=== PATIENT | female | born 1970 | race African-American/Black ===

== ENCOUNTER 2018-10-26 16:08 | Emergency (ER) | payer MEDICARE, MEDICAID ==
[~2018-10-26] VITALS: Ht 157.5 cm; Wt 65.9 kg
[2018-10-26] MEDS ORDERED: NORVASC5 M1 PO (16:33)
[2018-10-26] MEDS ORDERED: MORPHINE SUL15 MG PO (16:34)
[2018-10-26] MEDS ORDERED: TYLENOL PM PO (16:35)
[2018-10-26] MEDS ORDERED: PERCOCET 10/31 COMBO PO (16:35)
[2018-10-26] MEDS ORDERED: SINGULAIR10 MG PO (16:36)
[2018-10-26] MEDS ORDERED: KEFLEX500 MG PO (17:28)
[2018-10-26 17:43] VITALS: BP 141/86
== END 2018-10-26 17:43 | disposition home or self-care (01) ==
LOC: ED 16:08
DX: T81.41XA Infection following a procedure, superficial incisional surgical site, initial encounter (principal); L03.116 Cellulitis of left lower limb; L03.115 Cellulitis of right lower limb; I10 Essential (primary) hypertension; F17.210 Nicotine dependence, cigarettes, uncomplicated; Y83.8 Other surgical procedures as the cause of abnormal reaction of the patient, or of later complication, without mention of misadventure at the time of the procedure

== ENCOUNTER 2018-11-06 11:38 | Emergency (ER) | payer MEDICARE, MEDICAID ==
[~2018-11-06] VITALS: Ht 157.5 cm; Wt 62.0 kg
[~2018-11-06 11:38] MED LIST: KEFLEX500 MG PO; MORPHINE SUL15 MG PO; NORVASC5 M1 PO; PERCOCET 10/31 COMBO PO; SINGULAIR10 MG PO; TYLENOL PM PO
[2018-11-06 12:02] LABS: IMMATURE GRANULOCYTES 0.3 % (0.0-5.0); MEAN CELL VOLUME 91.4 fL CALC (80.0-100.0); MEAN CORPUSCULAR HGB 29.8 pG CALC (26.0-32.0); MEAN CORPUSCULAR HGB CONC 32.6 g/L CALC (32.0-36.0); NEUT# 4.19 thou/uL (2.00-7.15); RED BLOOD COUNT 3.59 mill/uL (4.20-5.60); RED CELL DISTRI WIDTH 13.2 % (11.5-15.5)
[2018-11-06 12:04] LABS: HEMATOCRIT 32.8 % (37.0-47.0); HEMOGLOBIN 10.7 g/dl (12.0-16.0)
[2018-11-06] MEDS ORDERED: VALIUM5 MG PO (12:04)
[2018-11-06 12:16] LABS: ALBUMIN 4.5 g/dL (3.2-5.0); ALKALINE PHOSPHATASE 131 u/l (38-126); AMYLASE 68 u/l (30-110); BILIRUBIN, TOTAL 0.3 mg/dL (0.0-1.4); BUN 11 mg/dL (7-17); BUN/CREATININE RATIO 16 (12-20 (CALC)); CHLORIDE 111 mmol/l (95-108); CREATININE 0.7 mg/dL (0.5-1.0); GFR > 60 ML/MIN (>=60 (CALC)); GFR FOR AFR.AMER. > 60 ML/MIN (>=60 (CALC)); LIPASE 199 u/l (23-300); SGOT/AST 19 u/l (14-36); SODIUM 143 mmol/l (137-146); TOTAL PROTEIN 7.6 g/dL (6.3-8.2)
[2018-11-06 12:18] LABS: ANION GAP 14 (6-22 (CALC)); CARBON DIOXIDE 22 mmol/l (22-30); POTASSIUM 3.8 mmol/l (3.5-5.1)
[2018-11-06] MEDS ORDERED: ONDANSETRON4 MG PO (13:06)
[2018-11-06 13:20] VITALS: BP 155/88
== END 2018-11-06 13:25 | disposition home or self-care (01) ==
LOC: ED 11:38
PROVIDERS: Emergency Medicine
DX: R10.30 Lower abdominal pain, unspecified (principal); R11.2 Nausea with vomiting, unspecified; I10 Essential (primary) hypertension; F17.210 Nicotine dependence, cigarettes, uncomplicated
CPT/HCPCS: Q9967

== ENCOUNTER 2021-01-06 18:06 | Emergency (ER) | payer MEDICARE, MEDICAID ==
[~2021-01-06] VITALS: Ht 157.5 cm; Wt 146.8 kg
[~2021-01-06 18:06] MED LIST changes: +ONDANSETRON4 MG PO; +VALIUM5 MG PO
[2021-01-06 19:44] LABS: HEMATOCRIT 37.7 % (37.0-47.0); HEMOGLOBIN 11.9 g/dl (12.0-16.0); IMMATURE GRANULOCYTES 0.2 % (0.0-5.0); MEAN CORPUSCULAR HGB CONC 31.6 g/dL CAL (32.0-36.0); NEUT# 3.3 thou/uL (2.00-7.15); RED BLOOD COUNT 3.97 mill/uL (4.20-5.60); RED CELL DISTRI WIDTH 12.8 % (11.5-15.5)
[2021-01-06 19:55] LABS: ALBUMIN 4.9 g/dL (3.2-5.0); ALKALINE PHOSPHATASE 108 u/l (38-126); AMYLASE 82 u/l (30-110); BUN 14 mg/dL (7-17); BUN/CREATININE RATIO 15 (12-20 (CALC)); CHLORIDE 104 mmol/l (95-108); CREATININE 0.9 mg/dL (0.5-1.0); GFR > 60 ML/MIN (>=60 (CALC)); GFR FOR AFR.AMER. > 60 ML/MIN (>=60 (CALC)); LIPASE 119 u/l (23-300); SGOT/AST 25 u/l (14-36); SODIUM 141 mmol/l (137-146); TOTAL PROTEIN 8.4 g/dL (6.3-8.2)
[2021-01-06 19:56] LABS: ANION GAP 14 (6-22 (CALC)); BILIRUBIN, TOTAL 0.5 mg/dL (0.0-1.4); CARBON DIOXIDE 28 mmol/l (22-30); POTASSIUM 4.7 mmol/l (3.5-5.1)
[2021-01-06 20:05] LABS: MYOGLOBIN 57 ng/mL (0 - 62)
[2021-01-06] MEDS ORDERED: ULTRAM50 M1 PO (22:02)
[2021-01-06] MEDS ORDERED: PREVACID30 M3 PO (22:02)
[2021-01-06] MEDS ORDERED: ONDANSETRON4 MG PO (22:02)
[2021-01-06 22:06] VITALS: BP 163/96
== END 2021-01-06 22:15 | disposition home or self-care (01) ==
LOC: ED 18:06
PROVIDERS: Emergency Medicine
DX: K29.70 Gastritis, unspecified, without bleeding (principal); I10 Essential (primary) hypertension; E78.00 Pure hypercholesterolemia, unspecified; J45.909 Unspecified asthma, uncomplicated; F17.210 Nicotine dependence, cigarettes, uncomplicated
CPT/HCPCS: Q9967; S0164

== ENCOUNTER 2021-04-13 15:48 | Emergency (ER) | payer MEDICARE, MEDICAID ==
[~2021-04-13 15:48] MED LIST changes: +PREVACID30 M3 PO; +ULTRAM50 M1 PO
== END 2021-04-13 17:21 | disposition left against medical advice (07) ==
LOC: ED 15:48 → LWOBS 16:30
DX: Z53.21 Procedure and treatment not carried out due to patient leaving prior to being seen by health care provider (principal)

== ENCOUNTER 2022-03-26 14:29 | Emergency (ER) | payer OTHER, MEDICARE, MEDICAID ==
[~2022-03-26] VITALS: Ht 157.5 cm; Wt 70.0 kg
[2022-03-26 16:46] VITALS: BP 147/85
== END 2022-03-26 16:50 | disposition home or self-care (01) | DRG 556 ==
LOC: ED 14:29
DX: M25.511 Pain in right shoulder (principal); I10 Essential (primary) hypertension; V43.52XA Car driver injured in collision with other type car in traffic accident, initial encounter

== ENCOUNTER 2023-04-10 12:50 | Emergency (ER) | payer MEDICARE, MEDICAID ==
[2023-04-10] VITALS (11 sets, daily range): BP systolic 152–183; BP diastolic 90–133
[~2023-04-10] VITALS: Ht 157.5 cm; Wt 72.1 kg
[2023-04-10] MEDS ORDERED: predniSONE 20 MG/TAB PO ONE (13:10)
[2023-04-10] MEDS ORDERED: KETOROLAC TROMETHAMINE 30 MG/ML SDV IM ONE (13:10)
[2023-04-10] MEDS ORDERED: KEFLEX500 MG PO (14:38)
[2023-04-10] MEDS ORDERED: NAPROXEN500 MG PO (14:47)
[2023-04-10] MEDS ORDERED: MEDDOSEPAK PO (14:47)
== END 2023-04-10 15:06 | disposition home or self-care (01) ==
LOC: ED 12:50
DX: M25.562 Pain in left knee (principal); I10 Essential (primary) hypertension; F17.200 Nicotine dependence, unspecified, uncomplicated; Z96.653 Presence of artificial knee joint, bilateral; Z79.891 Long term (current) use of opiate analgesic